=== PATIENT | male | born 1975 | race Two or more races ===

== ENCOUNTER 2016-11-09 15:14 | Emergency (ER) | payer OTHER ==
[~2016-11-09] VITALS: Ht 182.9 cm; Wt 81.6 kg
[2016-11-09 15:14] VITALS: BP 138/95
[2016-11-09] MEDS ORDERED: IBUPROFEN 600 MG TABLET PO ONE (16:04)
[2016-11-09] MEDS ORDERED: HYDROCODONE/APAP 10/325MG 1 EA TABLET ONE (16:04)
[2016-11-09] MEDS: IBUPROFEN 600 MG TABLET PO ONE (16:07)
[2016-11-09] MEDS: HYDROCODONE/APAP 10/325MG 1 EA TABLET PO ONE (16:08)
[2016-11-09] MEDS ORDERED: IV SET PRIMARY PUMP SET 1 EA INFUS.SET MC ONE (19:09)
== END 2016-11-09 15:44 | disposition home or self-care (01) ==
LOC: ER 15:17
DX: M54.42 Lumbago with sciatica, left side (principal); F17.210 Nicotine dependence, cigarettes, uncomplicated
CPT/HCPCS: 82962-TC; A4606; Z7610

== ENCOUNTER 2017-09-26 10:30 | Emergency (ER) | payer OTHER ==
[~2017-09-26] VITALS: Ht 177.8 cm; Wt 88.5 kg
[2017-09-26 10:54] VITALS: BP 149/79
[2017-09-26] MEDS ORDERED: LIDOCAINE HCL/PF 1% 30 ML SDV ONE (11:09)
[2017-09-26] MEDS ORDERED: TDAP [DIPH/PERTUSSIS/TET] 0.5 ML VIAL IM ONE ×2 (11:24→11:30)
[2017-09-26] MEDS ORDERED: LIDOCAINE HCL/PF 1% 30 ML VIAL TP ONE (11:30)
== END 2017-09-26 11:33 | disposition home or self-care (01) ==
LOC: ER 10:32
DX: S61.217A Laceration without foreign body of left little finger without damage to nail, initial encounter (principal); F17.210 Nicotine dependence, cigarettes, uncomplicated; W45.8XXA Other foreign body or object entering through skin, initial encounter; Y93.89 Activity, other specified; Y92.89 Other specified places as the place of occurrence of the external cause; Y99.8 Other external cause status
CPT/HCPCS: 90715; A4606; A6402; J3490; Z7610

== ENCOUNTER 2017-10-12 09:50 | Emergency (ER) | payer OTHER ==
[~2017-10-12] VITALS: Ht 182.9 cm; Wt 83.9 kg
[2017-10-12 09:53] VITALS: BP 132/86
== END 2017-10-12 10:18 | disposition home or self-care (01) ==
LOC: ER 10:00
DX: S61.412D Laceration without foreign body of left hand, subsequent encounter (principal); F17.200 Nicotine dependence, unspecified, uncomplicated
CPT/HCPCS: A4606; Z7502; Z7610